=== PATIENT | male | born 1990 | race Caucasian/White ===

== ENCOUNTER 2019-07-16 11:56 | Emergency (ER) | payer SELFPAY ==
[~2019-07-16] VITALS: Ht 180.3 cm; Wt 63.5 kg
[2019-07-16 12:56] LABS: BASOPHILS % 0.5 % (0.0-1.0); EOSINOPHILS # (AUTO) 0.1 (0.0-0.4); EOSINOPHILS % 0.9 % (0.0-6.0); HEMATOCRIT 46.6 % (38.2-49.6); HEMOGLOBIN 16.1 g/dL (14.0-18.0); LYMPHOCYTES # (AUTO) 2.9 (1.0-3.2); LYMPHOCYTES % 32.5 % (18.0-39.1); MEAN CORPUSCULAR HEMOGLOBIN 30.6 pg (28-32); MEAN CORPUSCULAR HGB CONC 34.5 g/dL (31-35); MEAN CORPUSCULAR VOLUME 88.4 fL (81-99); MONOCYTES # (AUTO) 0.5 (0.2-0.8); MONOCYTES % 6.1 % (4.4-11.3); NEUTROPHILS # (AUTO) 5.3 (2.1-6.9); NEUTROPHILS % 59.7 % (38.7-80.0); PLATELET COUNT 253 x10e3/uL (140-360); RED BLOOD COUNT 5.27 x10e6/uL (4.3-5.7); RED CELL DISTRIBUTION WIDTH 12.2 % (11.7-14.4)
[2019-07-16 13:09] LABS: AMPHETAMINES SCREEN,URINE NEGATIVE (NEGATIVE); BENZODIAZEPINES SCREEN,URINE NEGATIVE (NEGATIVE); PHENCYCLIDINE SCREEN,URINE NEGATIVE (NEGATIVE)
[2019-07-16 13:36] LABS: ALANINE AMINOTRANSFERASE 33 IU/L (0-55); ALBUMIN 4.8 g/dL (3.5-5.0); ALBUMIN/GLOBULIN RATIO 1.4 (0.8-2.0); ALKALINE PHOSPHATASE 64 IU/L (40-150); BLOOD UREA NITROGEN 9 mg/dL (7-26); BUN/CREATININE RATIO 10 (6-25); CALCIUM 10.4 mg/dL (8.4-10.2); CARBON DIOXIDE 27 mmol/L (22-29); CHLORIDE 102 mmol/L (98-107); CREATININE, SERUM 0.89 mg/dL (0.72-1.25); EST GLOMERULAR FILTRATION RATE > 60 ML/MIN (60-); GLUCOSE 102 mg/dL (74-118); SODIUM 138 mmol/L (136-145)
[2019-07-16 13:56] LABS: HIV 1&2 AB SCREEN NON-REACTIVE (NONREACTIVE)
[2019-07-16] MEDS ORDERED: SODIUM CHLORIDE 0.9% 50ML 50 ML ONE (15:01)
[2019-07-16] MEDS ORDERED: IOPAMIDOL 370 MG/ML 200 ML INFUS..BTL INJ ONE (15:01)
--- NOTE | 2019-07-16 15:26 | Diagnostic Imaging Report ---
Exam: CT abdomen and pelvis Clinical history: Abdominal pain Technique: Helical images of the abdomen and pelvis were obtained after IV contrast administration DOSE REDUCTION: The exams was performed according to the departmental dose-optimization program which includes automated exposure control, adjustment of the mA and/or kV according to patient size and/or use of iterative reconstruction technique. Next Findings: The lung bases are clear. There is no evidence of pleural effusion. The cardiac size is within normal limits. The liver, spleen, pancreas, gallbladder, adrenal glands, and kidneys are unremarkable. The small and large bowels are normal in caliber without evidence of obstruction. Moderate retained feces are noted throughout the colon. The bladder is contracted. The prostate and seminal vesicles are within normal limits. There is no evidence of lymphadenopathy or free fluid. The aorta and IVC are normal in caliber. Impression: 1. Unremarkable CT of abdomen and pelvis. Signed by: Dr. Colton Trivedi MD on 07/16/2019 3:22 PM
[2019-07-16 16:03] VITALS: BP 116/80
== END 2019-07-16 16:12 | disposition home or self-care (01) ==
LOC: ER 11:56
DX: R10.13 Epigastric pain (principal); F17.210 Nicotine dependence, cigarettes, uncomplicated; F12.90 Cannabis use, unspecified, uncomplicated
CPT/HCPCS: 36415; 74177; 80053; 80307; 83690; 85025; 87390; 99284; G0433; G0435; Q9967

== ENCOUNTER → 2019-12-11 | Day surgery (SDC) | payer BC ==
[~2019-12-11] MED LIST: FENTANYL CITRATE/PF 100MCG/2 ML INJ ONE; LIDOCAINE HCL 2% LOCAL INJ 5 ML SDV VIAL INJ ONE; MIDAZOLAM HCL 2 MG/2 ML VIAL ONE; PROPOFOL IV EMULSION 10 MG/ML 20 ML VIAL ONE; PROPOFOL IV EMULSION 10 MG/ML 50 ML VIAL ONE
[2019-12-11 09:43] LABS: WBC,FECAL (FECAL LACTOFERRIN) NEGATIVE (NEGATIVE)
[2019-12-11 09:55] VITALS: BP 104/77
--- NOTE | 2019-12-11 12:34 | Operative Report ---
DATE OF PROCEDURE: 12/11/2019 SURGEON: John Prieto MD PROCEDURES: EGD with biopsies and colonoscopy with polypectomy and biopsies. INDICATIONS FOR EGD: Acid reflux. INDICATIONS FOR COLONOSCOPY: Diarrhea, weight loss. Recently diagnosed father with colon cancer. MEDICATIONS: The patient was done under MAC, please see anesthesiologist's note. PROCEDURE IN DETAIL: With the patient in the left lateral decubitus position, a flexible fiberoptic Olympus gastroscope was inserted into the esophagus under direct visualization without any difficulty. There was some patchy erythema noted in distal esophagus. The scope was then advanced with ease into the stomach. Mucosa overlying the antrum and the body revealed some patchy intense erythema and [id number] edema, and biopsies were obtained and sent to stain for H. pylori. The pylorus was of normal contour and shape, was intubated with ease and the scope was advanced all the way to the second portion of the duodenum. Biopsies were obtained from the proximal second portion and duodenal bulb to rule out sprue. The scope was then withdrawn back into the stomach and retroflexed, mucosa overlying the fundus and the cardia appeared to be within normal limits. The scope was then straightened out, it was subsequently withdrawn, and the patient tolerated the procedure well. IMPRESSION: 1. Distal esophagitis, mild. 2. Gastritis, biopsied, biopsies sent to stain for Helicobacter pylori. 3. Rule out sprue. PLAN: Follow up histology. Initiate Protonix 40 mg 1 p.o. q.a.m. before meals. The patient was then turned around and after adequate lubrication of the anal canal, a flexible fiberoptic Olympus colonoscope was inserted into the rectum with ease and advanced all the way to the cecum. Mucosa overlying the cecum appeared to be within normal limits. The ileocecal valve appeared to be within normal limits. It was intubated and the scope was advanced into the terminal ileum. Biopsies were obtained. The scope was then withdrawn back into the colon. It was then withdrawn slowly. Mucosa overlying the ascending and transverse grossly appeared to be within normal limits. Mild patchy inflammatory changes were noted throughout the left colon and the rectum and multiple random biopsies were obtained. One polyp was hot snared and one polyp was hot biopsied from the sigmoid colon. One polypectomy site was hemoclipped in the sigmoid colon. The scope was then retroflexed into the distal rectum and small internal hemorrhoids were noted, none of which was actively bleeding. The scope was then straightened out and it was subsequently withdrawn after securing an adequate stool specimen that was sent for the appropriate stool studies. The patient tolerated the procedure well. IMPRESSION: 1. Mild patchy left-sided colitis. 2. Sigmoid colon polyps x2, one removed per snare electrocautery and hemoclipped and one hot biopsied. 3. Proctitis, mild. 4. Internal hemorrhoids, none actively bleeding. PLAN: Follow up histology. Follow up stool studies. Initiate Bentyl 10 mg 1 p.o. t.i.d. VSL#3 one p.o. daily. Check celiac panel. Check IBD panel, CRP, and sedimentation rate. The patient might benefit from a followup colonoscopy in 3 years considering his family history. John Prieto MD [facility] [place] /[id number]
[2019-12-11 14:54] LABS: C DIFFICILE TOXIN A&B AMP PROB NEGATIVE (NEGATIVE)
[2019-12-15 05:10] LABS: ENDOMYSIAL ANTIBODIES, IGA Negative (Negative)
== END | disposition home or self-care (01) ==
LOC: OR 06:48
PROVIDERS: ATTEND Internal Medicine Gastroenterology
DX: K29.70 Gastritis, unspecified, without bleeding (principal); D12.5 Benign neoplasm of sigmoid colon; K51.50 Left sided colitis without complications; K62.89 Other specified diseases of anus and rectum; K21.9 Gastro-esophageal reflux disease without esophagitis; K64.8 Other hemorrhoids; R63.4 Abnormal weight loss; F17.210 Nicotine dependence, cigarettes, uncomplicated; Z01.812 Encounter for preprocedural laboratory examination; Z80.0 Family history of malignant neoplasm of digestive organs
CPT/HCPCS: 36415; 43239; 45380; 45384; 45385; 82784; 83516; 83630; 83993; 85651; 86140; 86256 ×2; 86671; 87045; 87177; 87328; 87493; J2001; J2250; J2704 ×2; J3010